=== PATIENT | female | born 1935 | race African-American/Black ===

== ENCOUNTER 2016-05-15 11:39 | Outpatient (CLI) | payer MEDICARE, MEDICAID ==
[2016-05-15 13:04] LABS: Prothrombin Time 32.4 SEC (12.0-14.7)
== END 2016-05-15 11:40 | disposition home or self-care (01) ==
LOC: NAV LAB 11:39
PROVIDERS: ATTEND Family Medicine
DX: I48.1 Persistent atrial fibrillation (principal)
CPT/HCPCS: 36415; 85610

== ENCOUNTER 2016-06-02 18:56 | Outpatient (CLI) | payer MEDICARE, MEDICAID ==
[2016-06-02 19:39] LABS: Anion Gap 17 mmol/L (10-20); BUN (Urea Nitrogen) 18 mg/dL (9.8-20.1); Calc. Creatinine Clearance 0 mL/min (70-130); Calcium 9.2 mg/dL (7.8-10.44); Carbon Dioxide 27 mmol/L (23-31); Chloride 99 mmol/L (98-107); Estimated GFR-MDRD 51
[2016-06-02 20:03] LABS: Band 1 % (5-11); Hematocrit 40.8 % (36.0-47.0); Neutrophil 40 % (42-75); Ovalocytes SLIGHT = 2-5 cells (100X) (0-1/hpf); Reactive Lymphocytes 4 % (0-10); Red Blood Cell (RBC) Count 4.52 mill/uL (4.20-5.40); White Blood Cell (WBC) Count 4.7 thou/uL (4.8-10.8)
--- NOTE | 2016-06-02 22:56 | RAD ---
CHEST TWO VIEWS: 06/02/16 COMPARISON: 09/23/12 exam. HISTORY: Cough and congestion. Heart size is markedly enlarged. There are postop sternotomy changes. No focal infiltrative process is seen. Some bony synostosis of the right ribs. IMPRESSION: Cardiomegaly. No active intrathoracic disease. POS: [facility]
== END 2016-06-02 18:57 | disposition home or self-care (01) ==
LOC: NAV LAB 18:56
PROVIDERS: ATTEND Family Medicine
DX: J18.9 Pneumonia, unspecified organism (principal)
CPT/HCPCS: 36415; 71020; 80048; 85025

== ENCOUNTER 2016-06-10 09:25 | Outpatient (CLI) | payer MEDICARE, MEDICAID ==
[2016-06-10 11:03] LABS: Prothrombin Time 17.4 SEC (12.0-14.7)
== END 2016-06-10 09:26 | disposition home or self-care (01) ==
LOC: NAV LAB 09:25
PROVIDERS: ATTEND Family Medicine
DX: I48.1 Persistent atrial fibrillation (principal)
CPT/HCPCS: 36415; 85610

== ENCOUNTER 2016-07-01 09:34 | Outpatient (CLI) | payer MEDICARE, MEDICAID ==
[2016-07-01 10:01] LABS: Prothrombin Time 29.9 SEC (12.0-14.7)
== END 2016-07-01 09:35 | disposition home or self-care (01) ==
LOC: NAV LAB 09:34
PROVIDERS: ATTEND Family Medicine
DX: I48.1 Persistent atrial fibrillation (principal)
CPT/HCPCS: 36415; 85610

== ENCOUNTER 2016-07-31 10:29 | Outpatient (CLI) | payer MEDICARE, MEDICAID ==
[2016-07-31 11:13] LABS: Anion Gap 16 mmol/L (10-20); BUN (Urea Nitrogen) 15 mg/dL (9.8-20.1); Calc. Creatinine Clearance 0 mL/min (70-130); Calcium 8.9 mg/dL (7.8-10.44); Carbon Dioxide 23 mmol/L (23-31); Chloride 100 mmol/L (98-107); Estimated GFR-MDRD 55; Glucose 170 mg/dL (83-110); Potassium 4.3 mmol/L (3.5-5.1); Sodium 135 mmol/L (136-145)
[2016-07-31 11:30] LABS: INR-International Normal Ratio 3.6; Prothrombin Time 37.8 SEC (12.0-14.7)
== END 2016-07-31 10:30 | disposition home or self-care (01) ==
LOC: NAV LAB 10:29
PROVIDERS: ATTEND Internal Medicine Cardiovascular Disease
DX: I48.1 Persistent atrial fibrillation (principal)
CPT/HCPCS: 80048; 85610

== ENCOUNTER 2016-08-07 10:55 | Outpatient (CLI) | payer MEDICARE, MEDICAID ==
[2016-08-07 11:41] LABS: INR-International Normal Ratio 2.4; Prothrombin Time 26.7 SEC (12.0-14.7)
== END 2016-08-07 10:56 | disposition home or self-care (01) ==
LOC: NAV LAB 10:55
PROVIDERS: ATTEND Family Medicine
DX: I48.1 Persistent atrial fibrillation (principal)
CPT/HCPCS: 36415; 85610

== ENCOUNTER 2016-09-04 10:24 | Outpatient (CLI) | payer MEDICARE, MEDICAID ==
[2016-09-04 11:52] LABS: INR-International Normal Ratio 2.4; Prothrombin Time 26.8 SEC (12.0-14.7)
== END 2016-09-04 10:25 | disposition home or self-care (01) ==
LOC: NAV LAB 10:24
PROVIDERS: ATTEND Family Medicine
DX: I48.1 Persistent atrial fibrillation (principal)
CPT/HCPCS: 36415; 85610

== ENCOUNTER 2016-10-02 10:08 | Outpatient (CLI) | payer MEDICARE, MEDICAID ==
[2016-10-02 11:20] LABS: INR-International Normal Ratio 2.5; Prothrombin Time 27.6 SEC (12.0-14.7)
== END 2016-10-02 10:09 | disposition home or self-care (01) ==
LOC: NAV LAB 10:08
PROVIDERS: ATTEND Family Medicine
DX: I48.1 Persistent atrial fibrillation (principal)
CPT/HCPCS: 36415; 85610

== ENCOUNTER 2016-10-30 10:40 | Outpatient (CLI) | payer MEDICARE, MEDICAID ==
[2016-10-30 11:05] LABS: INR-International Normal Ratio 2.3; Prothrombin Time 25.8 SEC (12.0-14.7)
== END 2016-10-30 10:41 | disposition home or self-care (01) ==
LOC: NAV LAB 10:40
PROVIDERS: ATTEND Family Medicine
DX: I48.1 Persistent atrial fibrillation (principal)
CPT/HCPCS: 36415; 85610

== ENCOUNTER 2016-11-27 10:29 | Outpatient (CLI) | payer MEDICARE, OTHER ==
[2016-11-27 11:48] LABS: INR-International Normal Ratio 2.9; Prothrombin Time 31.8 SEC (12.0-14.7)
== END 2016-11-27 10:30 | disposition home or self-care (01) ==
LOC: NAV LAB 10:29
PROVIDERS: ATTEND Family Medicine
DX: I48.1 Persistent atrial fibrillation (principal)
CPT/HCPCS: 36415; 85610

== ENCOUNTER 2017-01-11 10:15 | Outpatient (CLI) | payer MEDICARE, OTHER ==
[2017-01-11 10:57] LABS: Prothrombin Time 41.2 SEC (12.0-14.7)
== END 2017-01-11 10:16 | disposition home or self-care (01) ==
LOC: NAV LAB 10:15
PROVIDERS: ATTEND Family Medicine
DX: I48.1 Persistent atrial fibrillation (principal)
CPT/HCPCS: 36415; 85610

== ENCOUNTER 2017-01-16 09:27 | Outpatient (CLI) | payer MEDICARE, OTHER ==
[2017-01-16 10:29] LABS: INR-International Normal Ratio 1.7; Prothrombin Time 20.9 SEC (12.0-14.7)
== END 2017-01-16 09:28 | disposition home or self-care (01) ==
LOC: NAV LAB 09:27
PROVIDERS: ATTEND Family Medicine
DX: I48.1 Persistent atrial fibrillation (principal)
CPT/HCPCS: 85610

== ENCOUNTER 2017-01-21 10:17 | Outpatient (CLI) | payer MEDICARE, OTHER ==
[2017-01-21 11:22] LABS: INR-International Normal Ratio 2.3; Prothrombin Time 25.9 SEC (12.0-14.7)
[2017-01-21 11:31] LABS: Anion Gap 14 mmol/L (10-20); BUN (Urea Nitrogen) 15 mg/dL (9.8-20.1); Calc. Creatinine Clearance 0 mL/min (70-130); Calcium 9.5 mg/dL (7.8-10.44); Carbon Dioxide 27 mmol/L (23-31); Chloride 100 mmol/L (98-107); Estimated GFR-MDRD 61; Glucose 90 mg/dL (83-110); Potassium 4.2 mmol/L (3.5-5.1); Sodium 137 mmol/L (136-145)
== END 2017-01-21 10:18 | disposition home or self-care (01) ==
LOC: NAV LAB 10:17
PROVIDERS: ATTEND Family Medicine
DX: Z51.81 Encounter for therapeutic drug level monitoring (principal); I48.91 Unspecified atrial fibrillation; N18.3 Chronic kidney disease, stage 3 (moderate); Z79.01 Long term (current) use of anticoagulants
CPT/HCPCS: 36415; 80048; 85610

== ENCOUNTER 2017-03-15 09:57 | Emergency (ER) | payer MEDICARE, MEDICAID ==
[2017-03-15] MEDS ORDERED: Sodium Chloride 0.9% 100 ML ONE (10:35)
[2017-03-15 11:21] LABS: CKMB 1.4 ng/mL (0-6.6); Troponin I Less than 0.010 ng/mL (< 0.028)
[2017-03-15 11:22] LABS: ALT (SGPT) 17 U/L (8-55); AST (SGOT) 23 U/L (5-34); Albumin 3.8 g/dL (3.4-4.8); Alkaline Phosphatase 63 U/L (40-150); Anion Gap 18 mmol/L (10-20); BUN (Urea Nitrogen) 14 mg/dL (9.8-20.1); Bilirubin, Total 0.7 mg/dL (0.2-1.2); CK (CPK) 63 U/L (29-168); Calc. Creatinine Clearance 0 mL/min (70-130); Calcium 9.2 mg/dL (7.8-10.44); Carbon Dioxide 22 mmol/L (23-31); Chloride 102 mmol/L (98-107); Eosinophils 10 % (0-10); Estimated GFR-MDRD 57; Globulin 4.2 g/dL (2.4-3.5); Glucose 111 mg/dL (83-110); Hemoglobin 11.6 g/dL (12.0-16.0); Lipase 25 U/L (8-78); Lymphocytes 28 % (21-51); MDiff Complete? YES; Mean Corpuscular HGB CONC 29.9 g/dL (32.0-36.0); Mean Corpuscular Hemoglobin 28.8 pg (27.0-31.0); Mean Corpuscular Volume 96.5 fl (81.0-99.0); Monocytes 4 % (0-10); Neutrophil 57 % (42-75); Platelet Count 223 thou/uL (130-400); Potassium 4.5 mmol/L (3.5-5.1); RBC Distribution Width 14.6 % (11.5-14.5); Red Blood Cell (RBC) Count 4.01 mill/uL (4.20-5.40); Sodium 137 mmol/L (136-145); Target Cells SLIGHT = 2-5 cells (100X) (0-1/hpf); White Blood Cell (WBC) Count 6.3 thou/uL (4.8-10.8)
--- NOTE | 2017-03-15 11:42 | RAD ---
FRONTAL VIEW CHEST: COMPARISON: 09/23/12. INDICATION: Chest pain and atrial fibrillation. FINDINGS: There is mild right pleural fluid with an enlarged cardiac silhouette and prominence of the pulmonar y vasculature. Bilateral interstitial prominence indicates edema. IMPRESSION: Decompensated congestive heart failure with right side pleural effusion. Followup to resolution is recommended. POS: [facility]
== END 2017-03-15 12:27 | disposition home or self-care (01) ==
LOC: NAV ERS 09:57
DX: I48.91 Unspecified atrial fibrillation (principal); E78.5 Hyperlipidemia, unspecified; I10 Essential (primary) hypertension; Z79.82 Long term (current) use of aspirin; Z79.84 Long term (current) use of oral hypoglycemic drugs; Z79.899 Other long term (current) drug therapy
CPT/HCPCS: 36415; 71010; 80053; 82553; 83690; 83880; 84484; 85025; 93005; 96374; 96376

== ENCOUNTER 2017-06-24 18:56 | Emergency (ER) | payer MEDICARE, MEDICAID ==
[2017-06-24] MEDS ORDERED: Diltiazem 125 MG/25 ML ONE ×2 (19:21→19:24)
[2017-06-24] MEDS ORDERED: Sodium Chloride 0.9% 100 ML ONE (19:24)
[2017-06-24 19:27] LABS: Hemoglobin 12.4 g/dL (12.0-16.0); Mean Corpuscular HGB CONC 30.1 g/dL (32.0-36.0); Mean Corpuscular Hemoglobin 27.1 pg (27.0-31.0); Mean Corpuscular Volume 90.1 fl (81.0-99.0); Mean Platelet Volume 9.1 fL (7.4-10.4); Platelet Count 181 thou/uL (130-400); RBC Distribution Width 14.5 % (11.5-14.5); Red Blood Cell (RBC) Count 4.59 mill/uL (4.20-5.40); White Blood Cell (WBC) Count 7.4 thou/uL (4.8-10.8)
[2017-06-24 19:42] LABS: ALT (SGPT) 57 U/L (8-55); Albumin 4.2 g/dL (3.4-4.8); Alkaline Phosphatase 66 U/L (40-150); Anion Gap 18 mmol/L (10-20); BUN (Urea Nitrogen) 15 mg/dL (9.8-20.1); Bilirubin, Total 0.6 mg/dL (0.2-1.2); CK (CPK) 44 U/L (29-168); Calc. Creatinine Clearance 0 mL/min (70-130); Calcium 9.7 mg/dL (7.8-10.44); Carbon Dioxide 26 mmol/L (23-31); Chloride 98 mmol/L (98-107); Estimated GFR-MDRD 64; Globulin 4.2 g/dL (2.4-3.5); Glucose 122 mg/dL (83-110); Lipase 19 U/L (8-78); Potassium 5.2 mmol/L (3.5-5.1); Protein, Total 8.4 g/dL (6.0-8.3); Sodium 137 mmol/L (136-145)
[2017-06-24 19:48] LABS: CKMB 1.4 ng/mL (0-6.6); Troponin I 0.013 ng/mL (< 0.028)
[2017-06-24 20:02] LABS: Lymphocytes 30 % (21-51); MDiff Complete? YES; Monocytes 5 % (0-10); Neutrophil 65 % (42-75); PLT Morphology Comment Appears Adequate; RBC Morphology Normal
[2017-06-24 20:16] LABS: AST (SGOT) 62 U/L (5-34)
--- NOTE | 2017-06-24 20:16 | RAD ---
PORTABLE FRONTAL CHEST RADIOGRAPH 06/24/17 COMPARISON: 03/15/17 HISTORY: Chest pain. FINDINGS: There is prominent degenerative change involving the glenohumeral joint on the left. There is atheros clerotic calcification in the aortic arch and midline sternotomy wires are noted. No pneumothorax or pleural fluid. No focal consolidation or alveolar edema. There is pulmonary vasculature prominence. T here is diffuse increased linear interstitial density, stable. IMPRESSION: Chronic findings as described above. No focal consolidation or alveolar edema. POS: [facility]
== END 2017-06-24 20:55 | disposition short-term general hospital (02) ==
LOC: NAV ERS 18:56
DX: I48.91 Unspecified atrial fibrillation (principal); E11.9 Type 2 diabetes mellitus without complications; E78.5 Hyperlipidemia, unspecified; I10 Essential (primary) hypertension; Z79.899 Other long term (current) drug therapy; Z79.82 Long term (current) use of aspirin
CPT/HCPCS: 71045; 80053; 82553; 83690; 83880; 84484; 85025; 93005; 96365; 96376

== ENCOUNTER 2018-10-19 16:27 | Outpatient (CLI) | payer MEDICARE, OTHER ==
[2018-10-19 17:07] LABS: #Basophils 0.1 thou/uL (0.0-0.2); #Lymphocytes 2.3 thou/uL (1.20-3.40); #Monocytes 0.6 thou/uL (0.11-0.59); #Neutrophils 4.8 thou/uL (1.40-6.50); %Basophils 0.8 % (0.0-1.0); %Eosinophils 0.4 % (0.0-10.0); %Lymphocytes 29.5 % (21.0-51.0); %Monocytes 7.2 % (0.0-10.0); Hemoglobin 13.4 g/dL (12.0-16.0); Mean Corpuscular HGB CONC 29.5 g/dL (32.0-36.0); Mean Corpuscular Hemoglobin 25.9 pg (27.0-31.0); Mean Corpuscular Volume 87.6 fL (78.0-98.0); Mean Platelet Volume 8.5 fL (7.4-10.4); Platelet Count 176 thou/uL (130-400); RBC Distribution Width 14.1 % (11.5-14.5); Red Blood Cell (RBC) Count 5.19 mill/uL (4.20-5.40); White Blood Cell (WBC) Count 7.7 thou/uL (4.8-10.8)
[2018-10-19 17:12] LABS: ALT (SGPT) 23 U/L (8-55); AST (SGOT) 25 U/L (5-34); Albumin 3.9 g/dL (3.4-4.8); Alkaline Phosphatase 112 U/L (40-150); Anion Gap 16 mmol/L (10-20); BUN (Urea Nitrogen) 26 mg/dL (9.8-20.1); Bilirubin, Total 0.6 mg/dL (0.2-1.2); Calc. Creatinine Clearance 0 mL/min (70-130); Calcium 9.9 mg/dL (7.8-10.44); Carbon Dioxide 27 mmol/L (23-31); Chloride 90 mmol/L (98-107); Estimated GFR-MDRD 34; Globulin 4.8 g/dL (2.4-3.5); Glucose 545 mg/dL (83-110); Potassium 4.3 mmol/L (3.5-5.1); Protein, Total 8.7 g/dL (6.0-8.3); Sodium 129 mmol/L (136-145)
[2018-10-19 17:13] LABS: Troponin I 0.022 ng/mL (< 0.028)
[2018-10-20 10:33] LABS: Hemoglobin A1c 18.7 % (4.0-6.0)
== END 2018-10-19 16:28 | disposition home or self-care (01) ==
LOC: NAV LAB 16:27
PROVIDERS: ATTEND Family Medicine
DX: I24.9 Acute ischemic heart disease, unspecified (principal); E11.22 Type 2 diabetes mellitus with diabetic chronic kidney disease; N18.9 Chronic kidney disease, unspecified; R30.0 Dysuria
CPT/HCPCS: 36415; 80053; 83036; 84484; 85025

== ENCOUNTER 2018-11-01 23:45 | Emergency (ER) | payer MEDICARE, MEDICAID ==
[2018-11-02 00:24] LABS: Band 10 % (5-11); Hemoglobin 11.3 g/dL (12.0-16.0); Lymphocytes 52 % (21-51); MDiff Complete? YES; Mean Corpuscular HGB CONC 30.2 g/dL (32.0-36.0); Mean Corpuscular Hemoglobin 26.4 pg (27.0-31.0); Mean Corpuscular Volume 87.4 fL (78.0-98.0); Mean Platelet Volume 8.1 fL (7.4-10.4); Monocytes 3 % (0-10); Neutrophil 35 % (42-75); Platelet Count 205 thou/uL (130-400); Platelet Morphology Comment Appears Adequate; RBC Distribution Width 14.9 % (11.5-14.5); RBC Morphology Normal; Red Blood Cell (RBC) Count 4.29 mill/uL (4.20-5.40); White Blood Cell (WBC) Count 6.4 thou/uL (4.8-10.8)
[2018-11-02 00:26] LABS: ALT (SGPT) 23 U/L (8-55); AST (SGOT) 43 U/L (5-34); Albumin 3.5 g/dL (3.4-4.8); Alkaline Phosphatase 82 U/L (40-150); Anion Gap 16 mmol/L (10-20); BUN (Urea Nitrogen) 18 mg/dL (9.8-20.1); Bilirubin, Total 0.4 mg/dL (0.2-1.2); Calc. Creatinine Clearance 0 mL/min (70-130); Calcium 9.2 mg/dL (7.8-10.44); Carbon Dioxide 24 mmol/L (23-31); Chloride 103 mmol/L (98-107); Estimated GFR-MDRD 53; Glucose 145 mg/dL (83-110); Potassium 4.5 mmol/L (3.5-5.1); Protein, Total 7.5 g/dL (6.0-8.3); Sodium 138 mmol/L (136-145)
--- NOTE | 2018-11-02 07:40 | RAD ---
XR Chest Pa Lat STANDARD History: Chest pain Comparison: Radiograph July 28, 2017 Findings: Small effusions. Heart size mildly enlarged. Single-lead pacer. Multiple midline sternotomy wires. 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 Dense calcifications of the aorta. Impression: Cardiomegaly, mild edema, and small pleural effusions.
== END 2018-11-02 03:30 | disposition home or self-care (01) ==
LOC: NAV ERS 23:45
DX: I10 Essential (primary) hypertension (principal); I25.10 Atherosclerotic heart disease of native coronary artery without angina pectoris; E11.9 Type 2 diabetes mellitus without complications; E78.5 Hyperlipidemia, unspecified; Z79.82 Long term (current) use of aspirin; Z79.899 Other long term (current) drug therapy; Z79.84 Long term (current) use of oral hypoglycemic drugs
CPT/HCPCS: 71046; 80053; 84484; 85025; 93005

== ENCOUNTER 2019-01-21 17:52 | Emergency (ER) | payer MEDICARE, OTHER | END 2019-01-21 18:40 | disposition home or self-care (01) | LOC: NAV ERS 17:52 | DX: Z45.010 Encounter for checking and testing of cardiac pacemaker pulse generator [battery] (principal); R63.4 Abnormal weight loss; K02.9 Dental caries, unspecified; E11.9 Type 2 diabetes mellitus without complications; E78.5 Hyperlipidemia, unspecified; E78.00 Pure hypercholesterolemia, unspecified; I10 Essential (primary) hypertension; I25.10 Atherosclerotic heart disease of native coronary artery without angina pectoris; Z79.82 Long term (current) use of aspirin; Z79.84 Long term (current) use of oral hypoglycemic drugs; Z79.01 Long term (current) use of anticoagulants; Z79.899 Other long term (current) drug therapy | CPT/HCPCS: 99282 ==